=== PATIENT | male | born 1995 | race African-American/Black ===

== ENCOUNTER 2019-08-12 17:36 | Emergency (ER) | payer MEDICAID, SELFPAY ==
[2019-08-12 17:38] VITALS: BP 142/96; PULSE 99; RESP 18; TEMP 36.3; O2SAT 97; BMI 28.8
--- NOTE | 2019-08-12 18:34 | CM.ED ---
Social Work Consult: Discharge Planning Informant: Dr. Randall Chief Complaint: Patient brought to ED by police. Apparently patient has been living with miss Vo and Miss Vo did not feel safe with patient and called the police. Police are not pink slipping patient to the ED. Police reporting that patient was mumbling to someone but no concerns of harm to other or self. Marital/Social History: Single Living Situation: Lives with Gilda Leon ([phone]) since 2019. Prior to this was homeless. Patient was born in [place] and then went to [place] to be with parents. Patient parents then sent patient and patient sister, Maryellen to the [facility] in 2018. Patient and patient sister were living with family and then homeless. Gilda was asked by adventist family ([facility] in [place]) to take patient and patient sister into Gilda's home for a few weeks. Gilda states to have been working with the [facility] to get patient transitioned to a long term. Patient sisterMaryellen no longer lives with [place]. Support/Resources: [facility] ([facility]), [facility]. History: None Education/Employment: Home Schooled. Unemployed. Possibly on social security disability per Gilda. Patient states to be unable to read and write. Patient does speak Syriac and reports to understand what this social services specialist is saying. Mental Health Treatment/History: Autism, Schizophrenia. Unsure of current medications. Did have an intake appointment with the [facility] recently per Gilda. Unsure of any inpatient psychiatric placements, none since living in the [facility]. Triggers/Stressors: Gilda reports that patient can become agitated when asked to do chores. Abuse Issues: Unknown Substance abuse History: Unknown Risk to Self/Others: Denies any thoughts, plans, intent of suicide or homicide. Gilda denies any harm to others from patient just agitation. Mental Status Exam: A&Ox3 Appearance/General Behavior: Appropriate. Directable. Mood/Affect: Appropriate Communication Pattern: Responds to questions. Thought Process: Patient denies any hallucinations or paranoia. Gilda states that will talk to people that are not there. General Intellectual Functioning: Below Average. Judgement: Poor. Assessment: Met with patient in room. Introduced self as well as social services specialist role. Patient agreeable to speaking with this social services specialist. Majority of assessment information obtained from Gilda. Patient states to want to go to a long term and that is why patient was brought to the ED today. Patient calm and laying in the bed and denies any distress or concern with Gilda. Patient states to only want to go to long term. This social services specialist did need to speak in simple terms and repeat self multiple times asking patient to repeat things back to ensure that patient understood. Patient pleasant to speak with. Telephone call to Gilda. Gilda states to not be open to taking back and that the board of DD needs to figure it out. Gilda states that patient biological parents are currently in [place]. Gilda states to be unsafe with patient when patient gets upset and to not want anything to get worse. Gilda states to have only thought to have had patient for a few days to couple weeks and that patient has now been living with Gilda since 2019. Gilda wondering if patient needs to go to an inpatient psychiatric hospital. This social services specialist explaining that patient is not meeting criteria for inpatient psychiatric placement. Gilda confirming that patient does not have a legal guardian at this time. Gilda reports that patient is unable to manage own medications, daily task such as meal prep and critical thinking task. Collaborating with Dr. Randall. Patient with no medical concerns at this time and is cleared for discharge. Dr. Randall and this social services specialist do not think that patient is able to make own decisions as patient is presenting as developmentally delayed. Gilda has declined to take patient back. Telephone call to [facility] Board of DD sugar controllerscalloper, Sheba. This social services specialist explaining situation. Sheba to call rubber tire and tubes supervisor and get back to this social services specialist. Telephone call to [facility], no answer. Will continue to follow. Anh PARDO, MIKAL
--- NOTE | 2019-08-12 19:31 | ED.RN ---
pt was offered food and drink and denied wanting any. pt states that he ate before he came into ED. This RN told him that he is more than welcome to have something to eat or drink when needed. pt agreeable.
--- NOTE | 2019-08-12 19:46 | CM.ED ---
Social Work Telephone call from [facility] of Sheba MCKENNA. Patient is not services connected and therefore board of is not able to provide emergency housing for patient. Sheba recommending for this patient to contact the [facility] or [facility] ([phone]). Telephone call to [facility], voicemail left requesting return phone call. [facility] states that there is a rapid admission process but to not be sure about qualifications. Misty to reach out to shipyard painting supervisor and call this psychiatric social worker back. Anh PARDO, MIKAL
[2019-08-12 19:54] VITALS: BP 154/68; PULSE 88; O2SAT 97
--- NOTE | 2019-08-12 20:09 | CM.ED ---
[facility] This social work program coordinator explaining situation and no housing for patient. [facility] states to have no emergency housing options for patient at this time. Anh PARDO, MIKAL
--- NOTE | 2019-08-12 20:30 | CM.ED ---
[facility] states to have found funding for patient. Sheba states that a provider will need to be found and Sheba is putting out a request. Sheba states the hope would be that patient would have a senior living placement in less then 5 days but this is not guaranteed. Sheba states that a provider might accept patient as soon as tomorrow but there is now way to confirm this. Sheba inquiring if a phone call could be made back to Gilda to see if Gilda would be open to taking patient back for another week. Telephone call to Gilda, This social work manager explaining above information. Gilda states I will not take him back. Gilda states to be concerned that the Board of will take longer then 5 days. This social work manager validating Gilda's concerns. Support provided. [facility] updated on conversation with Gilda. Sheba to continue to attempt to find provider for patient. Anh PARDO, MIKAL
[2019-08-12] MEDS: 0.9% Normal Saline 1,000 ML 150 ML IV (20:59)
[2019-08-12] MEDS: Ziprasidone IM 20 MG/ML VIAL IM (21:01)
[2019-08-12 21:03] LABS: Absolute Lymphocyte Count 3.08 X10^3/uL (0.83-4.51); Absolute Neutrophil Count 5.2 X10^3/uL (2.0-7.7); Basophil# 0.05 X10^3/uL; Basophil% 0.5 % (0-1); Eosinophil# 0.55 X10^3/uL; Eosinophils% 5.6 % (0-5); Hematocrit 44.6 % (40-54); Hemoglobin 14.2 g/dL (13.0-16.5); Lymphocyte # 3.08 X10^3/ul (4.0); Lymphocyte % 31.6 % (19-41); Mean Corp Hgb Conc 31.8 g/dL (32-36); Mean Platelet Vol. 8.9 fl (6.2-12.0); Monocyte# 0.85 X10^3/uL; Monocyte% 8.7 % (0-10); NRBC Flagged by Analyzer 0 % (0-5); Neutrophil # 5.16 X10^3/uL (2.7-7.7); Neutrophil % 53.1 % (47-70); Platelet Count 406 K/mm3 (150-450); RBC Distribution Width CV 14.7 % (11.6-14.6); RBC Distribution Width SD 45.1 fl (35.1-43.9); Red Blood Count 5.25 M/mm3 (4.6-6.2); White Blood Count 9.7 K/mm3 (4.4-11.0)
--- NOTE | 2019-08-12 21:04 | CM.ED ---
Social Work Telephone call from [facility] Board of , Sheba. Sheba states to have found a provider for patient. Sheba states that Lucía Guaman from [facility] will come and pick patient up tomorrow morning at 9:00am. Sheba only request is what medications patient is currently taking. This professor of social work updated nursing staff and Dr. Randall as well as patient on plan. Nursing staff to work towards finding patient medications. Per Gilda, patient medication are with patient belongings. PLAN: Discharge to the care of Lucía Guaman tomorrow at 9:00am. Anh PARDO, MIKAL
--- NOTE | 2019-08-12 21:17 | CM.ED ---
Social Work Telephone call from [facility], Misty. Misty reports to be unable to accept patient due to patient not being services connected already. This manager social media updating Misty that services are no longer needed and thanking Misty for the phone call back. Anh Summers MSW, MIKAL
[2019-08-12 21:19] LABS: Anion Gap 5 (5-15); BUN 21 mg/dL (7-18); Calcium,Total 9.5 mg/dL (8.5-10.1); Chloride 106 mmol/L (98-107); Creatinine, Serum 0.78 mg/dL (0.70-1.30); EST Glomerular Filtration Rate 131 mL/min (>60); Est Glom Filt Rate - Afr Amer 158 mL/min (>60); Glucose 99 mg/dL (74-106); Potassium 3.9 mmol/L (3.5-5.1); Sodium Level 139 mmol/L (136-145)
[2019-08-12 22:34] VITALS: BP 139/61; PULSE 89; RESP 18; O2SAT 94
--- NOTE | 2019-08-12 23:47 | ED.VISSUMM ---
- ER Visit Summary Date of Service: 08/12/19 Chief Complaint: Need to get to intermediate. History of Present Illness: The patient is a 23 M who is a poor informant. He reports that he was brought to the emergency department to get to a intermediate. Only complaint is that he has a little bit of cough for the past month. He denies any fever, chills, or other complaints. He states he does not feel depressed. He denies any suicidal ideation. No auditory hallucinations. Physical Examination: Vitals: Stable. Afebrile. General: Well-nourished and well-developed. Head: Normocephalic atraumatic. Neck: Supple, no lymphadenopathy. No JVD. Nontender. Cardiovascular: Regular rate and rhythm. No murmurs. Respiratory: No respiratory distress. Clear to auscultation bilaterally. Abdominal: Soft, nontender, nondistended, normal bowel sounds. No guarding, rebound, or peritoneal signs. Back: Nontender. Extremities: Nontender, no edema. Skin: Normal color, no rash. Neurologic: Alert and oriented ?3. Cranial nerves II through XII are intact. Normal strength and sensation. Mental status exam: Patient appears their stated age. Good posture and grooming. Good eye contact. Normal rate, volume, and latency of speech. No suicidal or homicidal ideation. No auditory or visual hallucinations. Flow of thought is tangential. Insight and judgment is poor. Test Results: CBC shows eosinophils of 6. Chem-7 shows a BUN of 21. Emergency Department Course and Treatment: Patient clearly has a difficult time understanding and expressing his thoughts. He was seen by case management and they have spoken with the woman the patient was staying with. He is in the process of trying to get in a intermediate by the board of . Case management here talk with them and was able to arrange for a room at 1 of the group homes tomorrow. Treatment Plan: Patient will be discharged tomorrow to the intermediate. Return to the emergency department for any worsening symptoms. Disposition: To home in improved and stable condition. Impression: 1. Mental retardation/developmental delay. 2. History of autism. 3. History of schizophrenia. This note was generated with Tiipz.comation software. It may contain incorrect words, spelling, and punctuation that were not noted in review of the chart prior to signing ED Disposition - Plan for ED Patient: Referrals: Care Physician,No Primary [Primary Care Provider] -
--- NOTE | 2019-08-12 23:51 | ED.DEP ---
ED Disposition - Plan for ED Patient: Instructions: Understanding Autism Referrals: Kate Odom [NON-STAFF] - 1-2 Weeks [facility]ing[facility] [GROUP OF PHYSICIANS] - As soon as possible
[2019-08-13 00:24] VITALS: BP 138/50; PULSE 72; RESP 16; O2SAT 93
[2019-08-13 03:36] VITALS: RESP 16
[2019-08-13 05:12] VITALS: RESP 16
[2019-08-13 10:07] VITALS: BP 113/76; PULSE 59; RESP 16; O2SAT 99
== END 2019-08-13 10:09 | disposition home or self-care (01) ==
LOC: ED 18:16
PROVIDERS: Emergency Provider Emergency Medicine
DX: F84.0 Autistic disorder (principal); F79 Unspecified intellectual disabilities; R62.50 Unspecified lack of expected normal physiological development in childhood; F20.9 Schizophrenia, unspecified; Z81.8 Family history of other mental and behavioral disorders
CPT/HCPCS: 80048; 85025; 96360; 96361; 96372; 99283; J7030; A4216; J3486

== ENCOUNTER 2019-08-15 17:40 | Emergency (ER) | payer MEDICAID, SELFPAY ==
[2019-08-15 17:42] VITALS: BP 140/90; PULSE 97; RESP 20; TEMP 36.6; O2SAT 98; BMI 45.4
--- NOTE | 2019-08-15 17:45 | ED.RN ---
PT WEARING MULTIPLE LAYERS OF CLOTHES. PT HAS REFUSED TO SHOWER SINCE THURSDAY
--- NOTE | 2019-08-15 18:34 | EKG12_ITS ---
Test Reason : REPEAT/OVERDOSE Blood Pressure : / mmHG Vent. Rate : 080 BPM Atrial Rate : 080 BPM P-R Int : 146 ms QRS Dur : 084 ms QT Int : 408 ms P-R-T Axes : 054 019 030 degrees QTc Int : 470 ms Normal sinus rhythm Minimal voltage criteria for LVH, may be normal variant Borderline ECG Confirmed by BEHZAD PEACOCK ([id number]), news assignment editor DINH HERNANDEZ ([id number]) on 08/23/2019 8:15:44 AM Referred By: [facility] Confirmed By:BEHZAD PEACOCK
--- NOTE | 2019-08-15 18:37 | ED.VIS.GEN ---
History of Present Illness Chief Complaint: Overdose Narrative: This patient is a 23-year-old male who presents after an unintentional drug overdose. He has a history of MRDD PTSD and schizophrenia. His stomach was upset so he took multiple medications in an attempt to help with his symptoms. He took 10 Prozac 20 mg, 10 Abilify 5 mg, 10 antidiarrheal tablets. Currently he has no complaints except his stomach being upset which was before his overdose. Caregiver notes he has had no recent illness otherwise such as vomiting or diarrhea. She does note that he has been wearing all of his clothes at home because he is afraid someone is going to steal them. She is attempting to get him placed to a psychiatric facility but has not yet been able to have this happen. Of note patient was recently evaluated here several days ago and arranged to be admitted to the shelter. Past Medical History - Allergies and Home Meds Allergies/Adverse Reactions: Allergies No Known Allergies Allergy (Verified 08/12/19 17:38) Primary Care Physician: Care Physician,No Primary [Primary Care Provider] - Past Medical History: - - MRDD, schizophrenia, PTSD Smoking Status: Never smoker Review of Systems All systems negative except as indicated General: Denies: Fever Eyes: Denies: Visual changes - bilaterally ENT: Denies: Bilateral ear pain Cardiovascular: Denies: Chest pain Respiratory: Denies: Dyspnea Gastrointestinal: Reports: Nausea. Denies: Abdominal pain, Vomiting, Diarrhea Musculoskeletal: Denies: Myalgias, Arthralgias Skin: Denies: Rash Neurological: Denies: Headache Physical Exam Vital Signs/Narrative: Vital Signs Temp Pulse Resp BP Pulse Ox 08/15/19 17:42 97.9 F 97 20 H 140/90 H 98 Inital Vital Signs reviewed: Yes General: Well nourished Head: Normocephalic Eyes: Perrl, EOMI ENT: Moist mucous membranes Neck: Supple Cardiovascular: Regular rate, Regular rhythm Respiratory: No distress, CTA bilaterally Abdomen: Soft, Nontender Skin: Normal color Neurological: Alert Psychological: Normal affect Diagnostic/Tx/Re-eval Laboratory Results 08/15/19 08/15/19 08/15/19 18:56 19:20 19:20 WBC 10.1 RBC 5.54 Hgb 14.9 Hct 46.6 MCV 84.1 MCH 26.9 L MCHC 32.0 RDW Std Deviation 45.0 H RDW Coeff of Dong 14.7 H Plt Count 393 MPV 8.7 Immature Gran % (Auto) 0.400 Neut % (Auto) 46.9 L Lymph % (Auto) 37.6 [place] % (Auto) 9.1 Eos % (Auto) 5.2 H Baso % (Auto) 0.8 Absolute Neuts (auto) 4.7 Absolute Lymphs (auto) 3.79 Nucleated RBC % 0 Sodium 138 Potassium 4.1 Chloride 104 Carbon Dioxide 26.0 Anion Gap 8 BUN 18 Creatinine 0.93 Estim Creat Clear Calc 115.50 Est GFR (MDRD) Af Amer 129 Est GFR (MDRD) Non-Af 106 BUN/Creatinine Ratio 19.4 Glucose 86 Calcium 8.9 Magnesium 2.3 Total Bilirubin 0.50 AST 26 ALT 48 Alkaline Phosphatase 79 Total Protein 8.4 H Albumin 3.8 Globulin 4.6 H Albumin/Globulin Ratio 0.8 L Salicylates Urine Opiates Screen NEGATIVE Urine Methadone Screen NEGATIVE Acetaminophen Ur Barbiturates Screen NEGATIVE Ur Phencyclidine Scrn NEGATIVE Ur Amphetamines Screen NEGATIVE U Methamphetamin-MDMA NEGATIVE U Benzodiazepines Scrn NEGATIVE Urine Cocaine Screen NEGATIVE U Cannabinoids Screen NEGATIVE Ur Drug Screen Comment Ethyl Alcohol 08/15/19 19:20 WBC RBC Hgb Hct MCV MCH MCHC RDW Std Deviation RDW Coeff of Dong Plt Count MPV Immature Gran % (Auto) Neut % (Auto) Lymph % (Auto) [place] % (Auto) Eos % (Auto) Baso % (Auto) Absolute Neuts (auto) Absolute Lymphs (auto) Nucleated RBC % Sodium Potassium Chloride Carbon Dioxide Anion Gap BUN Creatinine Estim Creat Clear Calc Est GFR (MDRD) Af Amer Est GFR (MDRD) Non-Af BUN/Creatinine Ratio Glucose Calcium Magnesium Total Bilirubin AST ALT Alkaline Phosphatase Total Protein Albumin Globulin Albumin/Globulin Ratio Salicylates < 1.7 L Urine Opiates Screen Urine Methadone Screen Acetaminophen < 2.0 L Ur Barbiturates Screen Ur Phencyclidine Scrn Ur Amphetamines Screen U Methamphetamin-MDMA U Benzodiazepines Scrn Urine Cocaine Screen U Cannabinoids Screen Ur Drug Screen Comment Ethyl Alcohol < 3.0 - Medical Decision Making EKG shows normal sinus rhythm at a rate of 87. QTc interval 469. I did speak to poison control. They advised to monitor for seizures, SALES AND MARKETING PROFESSIONAL depression, prolonged QT interval. They recommended a period of observation of 8 to 10 hours. Laboratory evaluation as above is unremarkable. I did speak to social work. They feel they have patient would benefit more from a crisis evaluation. I do feel the patient may benefit from psychiatric hospitalization. We will have crisis evaluate for possible placement. Poison control called back and did ask for a second EKG, QT interval 412 from 390. We will obtain 1 further EKG. Poison control had recommended hospital observation for 8 to 10 hours. After this time crisis will evaluate the patient. Patient signed out to the oncoming physician pending remainder of observation and then crisis evaluation. ED Disposition - Plan for ED Patient: Diagnosis: Schizophrenia, Accidental overdose Referrals: Care Physician,No Primary [Primary Care Provider] -
--- NOTE | 2019-08-15 18:39 | ED.RN ---
no old ekgs in muse
--- NOTE | 2019-08-15 18:53 | CM.ED ---
SOCIAL WORK Collaboration with Dr. Abebe. Crisis to evaluate for placement. Updated by personal secretary, Hector, Yael Alfaro with Board of [facility] ([phone]) requesting to speak to this worker. Attempted x2 to contact Yael. No answer, unable to leave message. Yumiko Montesinos, CYBER INTELLIGENCE ANALYST, ENDOCRINOLOGY NURSE
--- NOTE | 2019-08-15 19:14 | CASEMGMT ---
SOCIAL WORK Received call back from Yael Alfaro, Director of Service and Support with [facility]. Per Yael, does not feel comfortable with patient returning with Lucía Guaman as they did not have scripts for him when they took him in on Thursday morning. Feel patient would benefit from psych placement. Informed Yael, Dr. Abebe is completing work up and crisis will evaluate once medically cleared. Yael reports crisis able to call with any questions. Contact number [phone]. Plan: Pending work up and crisis consult. Yumiko Montesinos, CLERICAL ADVISER, PATIENT AMBASSADOR
[2019-08-15 19:29] LABS: Absolute Lymphocyte Count 3.79 X10^3/uL (0.83-4.51); Absolute Neutrophil Count 4.7 X10^3/uL (2.0-7.7); Basophil# 0.08 X10^3/uL; Basophil% 0.8 % (0-1); Eosinophil# 0.52 X10^3/uL; Eosinophils% 5.2 % (0-5); Hematocrit 46.6 % (40-54); Hemoglobin 14.9 g/dL (13.0-16.5); Lymphocyte # 3.79 X10^3/ul (4.0); Lymphocyte % 37.6 % (19-41); Mean Corpuscular Hgb 26.9 pg (27.0-32.0); Mean Corpuscular Volume 84.1 fL (80-94); Mean Platelet Vol. 8.7 fl (6.2-12.0); Monocyte# 0.92 X10^3/uL; Monocyte% 9.1 % (0-10); NRBC Flagged by Analyzer 0 % (0-5); Neutrophil # 4.72 X10^3/uL (2.7-7.7); Neutrophil % 46.9 % (47-70); Platelet Count 393 K/mm3 (150-450); RBC Distribution Width CV 14.7 % (11.6-14.6); Red Blood Count 5.54 M/mm3 (4.6-6.2); White Blood Count 10.1 K/mm3 (4.4-11.0)
[2019-08-15 19:29] LABS: Amphetamine Urine VISTA NEGATIVE (<1000 ng/mL); Barbiturate Urine VISTA NEGATIVE (< 200 ng/mL); Benzodiazepine Urine VISTA NEGATIVE (< 200 ng/mL); Cocaine Urine VISTA NEGATIVE (< 300 ng/mL); Ecstacy Urine VISTA NEGATIVE (< 500 ng/mL); Methadone Urine VISTA NEGATIVE (< 300 ng/mL); PCP Urine VISTA NEGATIVE (< 25 ng/mL); THC Urine VISTA NEGATIVE (< 50 ng/mL); Vista UDS pH Range 5
[2019-08-15 19:30] VITALS: BP 129/68; PULSE 83; RESP 28; O2SAT 99
[2019-08-15 19:48] LABS: ALB/GLOB Ratio 0.8 RATIO (0.9-2.4); AST(SGOT) 26 U/L (15-37); Alanine Aminotransfer ALT/SGPT 48 U/L (16-61); Albumin, Serum 3.8 g/dL (3.2-5.0); Alkaline Phosphatase 79 U/L (45-117); Anion Gap 8 (5-15); BUN 18 mg/dL (7-18); BUN/Creat Ratio 19.4 RATIO (10-20); Calcium,Total 8.9 mg/dL (8.5-10.1); Chloride 104 mmol/L (98-107); Creatinine, Serum 0.93 mg/dL (0.70-1.30); EST Glomerular Filtration Rate 106 mL/min (>60); Est Glom Filt Rate - Afr Amer 129 mL/min (>60); Globulin 4.6 g/dL (2.2-4.2); Glucose 86 mg/dL (74-106); Magnesium 2.3 mg/dL (1.6-2.6); Potassium 4.1 mmol/L (3.5-5.1); Protein, Total 8.4 g/dL (6.4-8.2); Sodium Level 138 mmol/L (136-145)
[2019-08-15 20:19] LABS: Acetaminophen (Tylenol) Level < 2.0 ug/mL (10.0-30.0); Alcohol, Blood (Medical)-Serum < 3.0 mg/dL; Salicylate < 1.7 mg/dL (2.8-20.0)
[2019-08-15 20:24] VITALS: BP 122/78; PULSE 92; RESP 23; O2SAT 99
--- NOTE | 2019-08-15 20:29 | ED.RN ---
Talked with poison control regarding pt. She would like us to recheck an EKG at 2245. Dr. Andrae freedman.
--- NOTE | 2019-08-15 20:50 | CM.ED ---
SOCIAL WORK Updated by Dr. Abebe on need to observe patient. Dr. Abebe stating crisis can be called at this time. Call to Crisis to update on consult, spoke with Talya. Per Talya, patient must be medically cleared before evaluation. Staff updated. Yumiko Montesinos, VAULT MANAGER, BODY SHOP MANAGER
[2019-08-15 21:03] VITALS: BP 119/79; PULSE 81; RESP 26; O2SAT 100
--- NOTE | 2019-08-15 21:41 | CM.ED ---
SOCIAL WORK Received call from Lucía Guaman with Board of DD. [facility] will be bringing in patient's clothes. Updated [facility] on plan for crisis consult once patient is medically cleared.
[2019-08-15 22:15] VITALS: BP 125/76; PULSE 81; RESP 98; O2SAT 26
--- NOTE | 2019-08-15 22:23 | ED.RN ---
Update given to caregiver regarding pt. Caregiver would like an update when we know placement for pt.
[2019-08-16] VITALS (9 sets, daily range): BP systolic 104–146; BP diastolic 61–97; PULSE 67–96; RESP 14–22; O2SAT 97–100
--- NOTE | 2019-08-16 02:16 | ED.RN ---
CALLED CRISIS TO SEE THIS PT, EDUARDO IS CAR PRE COOLER, REPORT FAXED TO THE OFFICE FAX
--- NOTE | 2019-08-16 02:30 | ED.RN ---
As it has been 8hrs since PT presented to ED, physician was consulted for re-eval. Repeat EKG was ordered and Crisis Center called.
--- NOTE | 2019-08-16 02:45 | EKG12_ITS ---
Test Reason : REPEAT EKG Blood Pressure : / mmHG Vent. Rate : 080 BPM Atrial Rate : 080 BPM P-R Int : 154 ms QRS Dur : 092 ms QT Int : 412 ms P-R-T Axes : 037 020 032 degrees QTc Int : 475 ms Normal sinus rhythm Nonspecific ST and T wave abnormality Prolonged QT Abnormal ECG Confirmed by BEHZAD PEACOCK ([id number]), copy editor DINH HERNANDEZ ([id number]) on 08/23/2019 8:16:02 AM Referred By: SAYDA Confirmed By:BEHZAD PEACOCK
--- NOTE | 2019-08-16 02:46 | EKG12_ITS ---
Test Reason : OD Blood Pressure : / mmHG Vent. Rate : 087 BPM Atrial Rate : 087 BPM P-R Int : 148 ms QRS Dur : 084 ms QT Int : 390 ms P-R-T Axes : 055 021 021 degrees QTc Int : 469 ms Normal sinus rhythm Normal ECG Confirmed by BEHZAD PEACOCK ([id number]), web editor DINH HERNANDEZ ([id number]) on 08/23/2019 8:16:16 AM Referred By: SAYDA Confirmed By:BEHZAD PEACOCK
--- NOTE | 2019-08-16 06:22 | ED.RN ---
Caregiver called to get permission to transfer to [facility]. No p/u at this time and was unable to leave message.
--- NOTE | 2019-08-16 08:30 | NURSING ---
CALLED 6 [facility], NONE AVAILABLE
--- NOTE | 2019-08-16 08:31 | NURSING ---
CALLED [facility] FOR TRANSPORT. ETA IS WHEN THEIR OTHER SQUAD COMES BACK FROM [facility]
--- NOTE | 2019-08-16 09:14 | ED.RN ---
Report called to [facility]. Quynh at [facility] given report. Transfer line aware pt will not be there until after 12pm.
--- NOTE | 2019-08-16 10:06 | CM.ED ---
Social Work Telephone call from [facility], Sheba Mahan. Sheba reporting to be patient restaurant kitchen and service manager. Sheba inquiring about patient states home vs. psychiatric hospital. This director social welfare updating Sheba that patient is to be discharged to [facility] and is currently waiting transportation. Anh PARDO, MIKAL
--- NOTE | 2019-08-16 10:12 | ED.RN ---
Pt alert and cooperative. Will be changing back to gown. Refused drink.
--- NOTE | 2019-08-16 11:14 | ED.RN ---
Lunch tray given. Pt still in street clothes but understands he has to be changed after lunch.
--- NOTE | 2019-08-16 14:56 | ED.RN ---
EDIT NOTE 914 am 08/16/2019 Transfer line at [facility] asked about pt being pink slipped and being voluntary. Pt was not pink slipped and report from Demetra NEAL stated that pt was voluntary at this time. Transfer line asked about voluntary papers being signed and faxed back. I made her aware that there was no paperwork and they could fax them to me and I would have him sign them. Transfer line stated I hope he signs them or we will be sending him right back to y'all Pt has been cooperative the entire time he has been here.
== END 2019-08-16 11:36 ==
PROVIDERS: Emergency Provider Emergency Medicine
DX: T43.221A Poisoning by selective serotonin reuptake inhibitors, accidental (unintentional), initial encounter (principal); T43.591A Poisoning by other antipsychotics and neuroleptics, accidental (unintentional), initial encounter; T47.6X1A Poisoning by antidiarrheal drugs, accidental (unintentional), initial encounter; Y92.9 Unspecified place or not applicable; F43.10 Post-traumatic stress disorder, unspecified; F20.9 Schizophrenia, unspecified; F79 Unspecified intellectual disabilities
CPT/HCPCS: 80053; 80307; 80320; 80329; 83735; 85025; 93005; 99283; A4216; G0480